=== PATIENT | female | born 1995 ===

== ENCOUNTER 2017-10-21 22:23 | Emergency (ER) | payer MEDICAID ==
[2017-10-21 23:22] VITALS: BP 130/71
[2017-10-22] MEDS ORDERED: TETRACAINE 0.5% ONE (03:20)
[2017-10-22] MEDS ORDERED: FUL-GLO OP ONE (03:20)
[2017-10-22] MEDS ORDERED: MOTRIN PO ONE (03:49)
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
== END 2017-10-22 04:02 | disposition home or self-care (01) ==
LOC: ED 22:23
DX: H00.031 Abscess of right upper eyelid (principal)
CPT/HCPCS: 99283